=== PATIENT | female | born 1935 | race Two or more races ===

== ENCOUNTER 2019-03-07 15:48 | Outpatient (CLI) | payer OTHER | END 2019-03-07 15:49 | disposition home or self-care (01) | LOC: RHC-LAB 15:48 | PROVIDERS: ATTEND General Practice | DX: I10 Essential (primary) hypertension (principal); R73.09 Other abnormal glucose; Z79.899 Other long term (current) drug therapy | CPT/HCPCS: 36415; 80053; 80061; 81001; 83036; 84443; 85025; 87077; 87086; 87186 ==

== ENCOUNTER 2019-03-14 12:28 | Outpatient (CLI) | END 2019-03-14 12:29 | disposition home or self-care (01) | LOC: RHC-LAB 12:28 | PROVIDERS: ATTEND General Practice | DX: N30.01 Acute cystitis with hematuria (principal); E87.6 Hypokalemia | CPT/HCPCS: 36415; 80048; 81001; 87086 ==